=== PATIENT | male | born 1995 | race Caucasian/White ===

== ENCOUNTER 2017-01-30 12:46 | Emergency (ER) | payer BC ==
[~2017-01-30] VITALS: Ht 180.3 cm; Wt 70.3 kg
[2017-01-30 14:08] VITALS: BP 136/86
== END 2017-01-30 15:05 | disposition home or self-care (01) ==
LOC: ER 12:56
DX: S90.31XA Contusion of right foot, initial encounter (principal); W17.89XA Other fall from one level to another, initial encounter; Y93.89 Activity, other specified; Y99.8 Other external cause status; Y92.89 Other specified places as the place of occurrence of the external cause
CPT/HCPCS: 73700